=== PATIENT | male | born 1955 | race Caucasian/White ===

== ENCOUNTER 2020-07-21 11:29 | Emergency (ER) | payer BC ==
[~2020-07-21 11:29] MED LIST: ALTACE10 MG PO; CIALIS20 MG PO; CRESTOR20 MG PO; CYANOCOBAL1000 MCG/1 INJ; ECOTRIN325 MG PO; LOPRESSOR 25 MG25 MG PO; NORVASC 5 MG TAB5 MG PO; SYNTHROID25 MCG PO; VITAMIN D250000 UNIT PO
[2020-07-21 11:59] LABS: HEMOGLOBIN 15.4 gm/dl (14.0-17.5); RED BLOOD COUNT 5.06 M/UL (4.20-5.50); WHITE BLOOD COUNT 6.4 K/UL (4.5-11.0)
[2020-07-21 12:27] LABS: BUN/CREATININE RATIO 15 (0-10)
== END 2020-07-21 16:58 | disposition home or self-care (01) ==
LOC: ER1 11:29
PROVIDERS: Emergency Medicine
DX: R55 Syncope and collapse (principal); R00.1 Bradycardia, unspecified; R53.83 Other fatigue; I45.10 Unspecified right bundle-branch block; I25.10 Atherosclerotic heart disease of native coronary artery without angina pectoris; Z86.73 Personal history of transient ischemic attack (TIA), and cerebral infarction without residual deficits; Z86.79 Personal history of other diseases of the circulatory system; Z95.5 Presence of coronary angioplasty implant and graft
CPT/HCPCS: 70450; 71045; 80053; 82550; 82553; 83735; 83874; 84484; 85025; 93005; 99285

== ENCOUNTER → 2020-07-30 | Outpatient (CLI) | payer BC | LOC: HEART 5 13:57 | DX: R00.1 Bradycardia, unspecified (principal); R55 Syncope and collapse ==

== ENCOUNTER → 2022-02-12 | Outpatient (CLI) | payer BC ==
[~2022-02-12] VITALS: Ht 182.9 cm; Wt 104.3 kg
== END ==
LOC: EROP 13:05
DX: U07.1 COVID-19 (principal)
CPT/HCPCS: M0222; Q0222

== ENCOUNTER → 2022-02-26 | Outpatient (CLI) | payer BC | LOC: CT 12:36 | DX: L97.909 Non-pressure chronic ulcer of unspecified part of unspecified lower leg with unspecified severity (principal); M79.604 Pain in right leg; I73.9 Peripheral vascular disease, unspecified | CPT/HCPCS: 75635; Q9967 ==